=== PATIENT | female | born 1995 | race African-American/Black ===

== ENCOUNTER 2018-06-12 08:24 | Emergency (ER) | payer BC ==
[~2018-06-12] VITALS: Ht 160 cm; Wt 52.6 kg
[~2018-06-12 08:24] MED LIST: BACTRIM DS TAB1 EACH PO; LORTAB 5 MG/5001 TA1; MACROBID 100 M100 M1 PO; NAPROSYN500 MG PO; NOHOMEMEDICATIONS
[2018-06-12] MEDS ORDERED: BACTRIM DS TAB1 EACH PO (10:54)
[2018-06-12 11:20] VITALS: BP 125/77
== END 2018-06-12 11:21 | disposition home or self-care (01) ==
LOC: ER 08:24
PROC: 0U9MXZZ Drainage of Vulva, External Approach (ICD-10-PCS; principal; 2018-06-12)
DX: N76.4 Abscess of vulva (principal); L72.3 Sebaceous cyst; Z90.49 Acquired absence of other specified parts of digestive tract

== ENCOUNTER 2018-06-15 09:45 | Emergency (ER) | payer BC ==
[~2018-06-15] VITALS: Ht 160 cm; Wt 52.6 kg
[2018-06-15 09:48] VITALS: BP 111/46
== END 2018-06-15 10:10 | disposition home or self-care (01) ==
LOC: ER 09:45
DX: N76.4 Abscess of vulva (principal); Z90.49 Acquired absence of other specified parts of digestive tract

== ENCOUNTER 2018-12-26 09:00 | Emergency (ER) | payer BC ==
[~2018-12-26] VITALS: Ht 157.5 cm; Wt 54.4 kg
[2018-12-26 09:00] VITALS: BP 121/70
[2018-12-26] MEDS ORDERED: IBUPROFEN 600600 M1 PO (11:06)
[2018-12-26] MEDS ORDERED: HYDROCODONE-AP1 EAC6 PO (11:06)
== END 2018-12-26 11:00 | disposition home or self-care (01) ==
LOC: ER 09:00
DX: L02.214 Cutaneous abscess of groin (principal); Z90.49 Acquired absence of other specified parts of digestive tract

== ENCOUNTER 2019-08-14 08:25 | Emergency (ER) | payer BC ==
[~2019-08-14] VITALS: Ht 160 cm; Wt 59.0 kg
[~2019-08-14 08:25] MED LIST changes: +HYDROCODONE-AP1 EAC6 PO; +IBUPROFEN 600600 M1 PO
[2019-08-14 08:56] LABS: URINE BILIRUBIN NEGATIVE (Negative); URINE BLOOD TRACE (Negative); URINE COLOR YELLOW; URINE GLUCOSE-RANDOM* NEGATIVE (Negative); URINE KETONES NEGATIVE (Negative); URINE NITRITE-REFLEX NEGATIVE (Negative); URINE PROTEIN (DIPSTICK) NEGATIVE (Negative); URINE SPECIFIC GRAVITY 1.025 (1.005-1.035); URINE UROBILINOGEN 0.2 E.U./dl (0.2-1.0)
[2019-08-14 08:58] LABS: URINE CLARITY SL HAZY; URINE LEUKOCYTES-REFLEX 1+ (Negative)
[2019-08-14 09:08] LABS: CASTS None Seen /LPF (None Seen); SQUAMOUS >10 Many /LPF (0-3)
[2019-08-14 09:09] LABS: CRYSTALS None Seen /LPF (None Seen); URINE RBC 0-2 Rare /HPF (0-2); URINE WBC-REFLEX 0-5 Rare /HPF (0-5)
[2019-08-14 09:13] LABS: ABSOLUTE NEUTROPHILS 3.6 thou/uL (1.4-8.2); BASOPHILS 0.9 % (0.0-2.0); EOSINOPHILS 3.1 % (0.0-3.0); HEMATOCRIT 39.3 % (37.0-47.0); HEMOGLOBIN 12.4 gm/dL (12.0-15.0); MCH 26.7 pg (26.0-34.0); MCHC 31.5 g/dL (28.0-37.0); MCV 84.8 fL (80.0-100.0); MONOCYTES 6.7 % (1.0-8.0); PLATELET COUNT 266 thou/uL (150-400); POLYS 62.3 % (36.0-66.0); RBC 4.64 mil/uL (4.20-5.00); RDW 14.4 % (10.5-14.5); WBC 5.8 thou/uL (4.0-11.0)
[2019-08-14 09:20] LABS: CALCIUM 9.6 mg/dL (8.5-10.1); CREATININE 0.9 mg/dL (0.6-1.0); POTASSIUM 4.8 mmol/L (3.5-5.1)
[2019-08-14 09:27] LABS: TOTAL BILIRUBIN 0.1 mg/dL (<0.1-1.0); TOTAL PROTEIN 7.7 g/dL (6.4-8.2)
[2019-08-14] MEDS ORDERED: LEVSIN0.125 MG PO (09:52)
[2019-08-14] MEDS ORDERED: PRILOSEC OTC20 MG PO (09:52)
[2019-08-14 10:30] VITALS: BP 108/61
== END 2019-08-14 10:46 | disposition home or self-care (01) ==
LOC: ER 08:25
PROVIDERS: Emergency Medicine
DX: R10.13 Epigastric pain (principal); R19.7 Diarrhea, unspecified; Z90.49 Acquired absence of other specified parts of digestive tract

== ENCOUNTER 2019-10-20 10:03 | Emergency (ER) | payer BC ==
[~2019-10-20] VITALS: Ht 160 cm; Wt 61.7 kg
[~2019-10-20 10:03] MED LIST changes: +LEVSIN0.125 MG PO; +PRILOSEC OTC20 MG PO
[2019-10-20 11:07] LABS: URINE BILIRUBIN NEGATIVE (Negative); URINE BLOOD NEGATIVE (Negative); URINE CLARITY CLEAR; URINE COLOR YELLOW; URINE GLUCOSE-RANDOM* NEGATIVE (Negative); URINE KETONES NEGATIVE (Negative); URINE LEUKOCYTES-REFLEX NEGATIVE (Negative); URINE NITRITE-REFLEX NEGATIVE (Negative); URINE PROTEIN (DIPSTICK) NEGATIVE (Negative); URINE SPECIFIC GRAVITY >= 1.030 (1.005-1.035); URINE UROBILINOGEN 0.2 E.U./dl (0.2-1.0)
[2019-10-20 12:09] LABS: ABSOLUTE NEUTROPHILS 2.9 thou/uL (1.4-8.2); BASOPHILS 0.8 % (0.0-2.0); EOSINOPHILS 1.4 % (0.0-3.0); HEMATOCRIT 37.8 % (37.0-47.0); HEMOGLOBIN 12.1 gm/dL (12.0-15.0); LYMPHOCYTES 30.9 % (24.0-44.0); MCHC 32.1 g/dL (28.0-37.0); MCV 84.1 fL (80.0-100.0); MONOCYTES 7.7 % (1.0-8.0); PLATELET COUNT 275 thou/uL (150-400); POLYS 59.2 % (36.0-66.0); RDW 15.1 % (10.5-14.5); WBC 4.9 thou/uL (4.0-11.0)
[2019-10-20 12:13] LABS: CALCIUM 9.6 mg/dL (8.5-10.1); CREATININE 0.9 mg/dL (0.6-1.0); POTASSIUM 3.9 mmol/L (3.5-5.1)
[2019-10-20 12:19] LABS: ALBUMIN 3.9 g/dL (3.4-5.0); TOTAL BILIRUBIN 0.4 mg/dL (<0.1-1.0); TOTAL PROTEIN 7.1 g/dL (6.4-8.2)
[2019-10-20] MEDS ORDERED: FLAGYL500 M1 PO (12:43)
[2019-10-20] MEDS ORDERED: ONDANSETRON HCL4 M2 PO (12:43)
[2019-10-20] MEDS ORDERED: OMEPRAZOLE 20 M20 M1 PO (12:51)
[2019-10-20 12:52] VITALS: BP 116/61
== END 2019-10-20 12:55 | disposition home or self-care (01) ==
LOC: ER 10:03
PROVIDERS: Physician Assistant
DX: N76.0 Acute vaginitis (principal); K29.70 Gastritis, unspecified, without bleeding; Z90.49 Acquired absence of other specified parts of digestive tract

== ENCOUNTER 2020-06-29 13:36 | Emergency (ER) | payer BC ==
[~2020-06-29] VITALS: Ht 160 cm; Wt 56.7 kg
[~2020-06-29 13:36] MED LIST changes: +FLAGYL500 M1 PO; +OMEPRAZOLE 20 M20 M1 PO; +ONDANSETRON HCL4 M2 PO
[2020-06-29 14:06] LABS: URINE BILIRUBIN NEGATIVE (Negative); URINE BLOOD NEGATIVE (Negative); URINE CLARITY SL CLOUDY; URINE COLOR YELLOW; URINE GLUCOSE-RANDOM* NEGATIVE (Negative); URINE KETONES 2+ (Negative); URINE PROTEIN (DIPSTICK) TRACE (Negative); URINE SPECIFIC GRAVITY >= 1.030 (1.005-1.035); URINE UROBILINOGEN 0.2 E.U./dl (0.2-1.0)
[2020-06-29 14:14] LABS: URINE LEUKOCYTES-REFLEX 1+ (Negative); URINE NITRITE-REFLEX POSITIVE (Negative)
[2020-06-29 14:18] LABS: BACTERIA-REFLEX >30 Many /HPF (None Seen); CASTS None Seen /LPF (None Seen); CRYSTALS None Seen /LPF (None Seen); SQUAMOUS >10 Many /LPF (0-3); URINE RBC 0-2 Rare /HPF (0-2)
[2020-06-29] MEDS ORDERED: MACROBID 100 M100 MG PO (14:49)
[2020-06-29 15:05] VITALS: BP 117/59
--- NOTE | 2020-06-29 19:28 | EKG ---
[facility] [place] [address] ELECTROCARDIOGRAM REPORT Name: ZHOU SAWYER Room #: [facility].#: [id number] Admission: 06/29/20 Attend Phys: Discharge: 06/29/20 Date of : [birth year] Report #: [id number] THIS REPORT FOR: cc: Seferino Barakat Steven F. DO Lundgren, Craig H. 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
== END 2020-06-29 15:05 | disposition home or self-care (01) ==
LOC: ER 13:36
PROVIDERS: Physician Assistant
DX: S09.90XA Unspecified injury of head, initial encounter (principal); N39.0 Urinary tract infection, site not specified; R07.81 Pleurodynia; R55 Syncope and collapse; R51.9 Headache, unspecified; M54.2 Cervicalgia; M79.602 Pain in left arm; M79.605 Pain in left leg; M54.9 Dorsalgia, unspecified; Z90.49 Acquired absence of other specified parts of digestive tract; W18.39XA Other fall on same level, initial encounter; Y93.89 Activity, other specified; Y92.098 Other place in other non-institutional residence as the place of occurrence of the external cause; Y99.8 Other external cause status

== ENCOUNTER 2020-08-05 12:45 | Emergency (ER) | payer BC ==
[~2020-08-05] VITALS: Ht 160 cm; Wt 57.1 kg
[~2020-08-05 12:45] MED LIST changes: +MACROBID 100 M100 MG PO
[2020-08-05] MEDS ORDERED: HYDROCODON-ACE1 EAC7 PO (15:04)
[2020-08-05 15:45] VITALS: BP 106/70
== END 2020-08-05 15:47 | disposition home or self-care (01) ==
LOC: ER 12:45
DX: S52.125A Nondisplaced fracture of head of left radius, initial encounter for closed fracture (principal); M25.512 Pain in left shoulder; M25.532 Pain in left wrist; Z90.49 Acquired absence of other specified parts of digestive tract; V49.88XA Car occupant (driver) (passenger) injured in other specified transport accidents, initial encounter; Y93.89 Activity, other specified; Y92.413 State road as the place of occurrence of the external cause; Y99.9 Unspecified external cause status

== ENCOUNTER 2021-07-19 11:06 | Emergency (ER) | payer BC ==
[~2021-07-19] VITALS: Ht 157.5 cm; Wt 59.0 kg
[~2021-07-19 11:06] MED LIST changes: +HYDROCODON-ACE1 EAC7 PO
[2021-07-19 11:48] LABS: ABSOLUTE NEUTROPHILS 7.2 thou/uL (1.4-8.2); BASOPHILS 0.6 % (0.0-2.0); EOSINOPHILS 0.6 % (0.0-3.0); HEMATOCRIT 37.2 % (37.0-47.0); LYMPHOCYTES 4.2 % (24.0-44.0); MCHC 32.2 g/dL (28.0-37.0); MCV 83.8 fL (80.0-100.0); MONOCYTES 6.2 % (1.0-8.0); PLATELET COUNT 232 thou/uL (150-400); POLYS 88.4 % (36.0-66.0); RBC 4.44 mil/uL (4.20-5.00); RDW 14.5 % (10.5-14.5); WBC 8.1 thou/uL (4.0-11.0)
[2021-07-19 11:56] LABS: CREATININE 0.9 mg/dL (0.6-1.0); POTASSIUM 4.1 mmol/L (3.5-5.1)
[2021-07-19 12:02] LABS: TOTAL BILIRUBIN 0.4 mg/dL (0.2-1.0); TOTAL PROTEIN 7.5 g/dL (6.4-8.2)
[2021-07-19 13:38] VITALS: BP 114/47
[2021-07-19] MEDS ORDERED: ZOFRAN ODT4 MG PO (14:03)
[2021-07-19] MEDS ORDERED: METRONIDAZOLE500 M4 PO (14:08)
[2021-07-19 14:50] LABS: URINE BLOOD 3+ (Negative); URINE GLUCOSE-RANDOM* NEGATIVE (Negative); URINE KETONES 1+ (Negative); URINE LEUKOCYTES-REFLEX TRACE (Negative); URINE NITRITE-REFLEX NEGATIVE (Negative); URINE PROTEIN (DIPSTICK) 2+ (Negative); URINE SPECIFIC GRAVITY 1.025 (1.005-1.035); URINE UROBILINOGEN 0.2 E.U./dl (0.2-1.0)
[2021-07-19 14:52] LABS: ICTOTEST (BILI CONFIRMATORY) Negative (Negative); URINE BILIRUBIN NEGATIVE (Negative); URINE CLARITY CLOUDY; URINE COLOR RED
[2021-07-19 14:54] LABS: CASTS None Seen /LPF (None Seen); SQUAMOUS >10 Many /LPF (0-3); URINE RBC >20 Many /HPF (NONE SEEN); URINE WBC-REFLEX 6-15 Few /HPF (0-5)
[2021-07-19 14:55] LABS: CRYSTALS None Seen /LPF (None Seen); MUCUS 4-6 Moderate strn/LPF (None Seen)
[2021-07-19] MEDS ORDERED: CEPHALEXIN500 MG PO (15:00)
[2021-07-21] MEDS ORDERED: DOXYCYCLINE 10100 MG PO (16:16)
== END 2021-07-19 15:14 | disposition home or self-care (01) ==
LOC: ER 11:06
PROVIDERS: Emergency Medicine
DX: U07.1 COVID-19 (principal); R11.2 Nausea with vomiting, unspecified; N39.0 Urinary tract infection, site not specified; A59.9 Trichomoniasis, unspecified; Z90.49 Acquired absence of other specified parts of digestive tract